=== PATIENT | male | born 1995 ===

== ENCOUNTER 2022-12-06 09:19 | Day surgery (SDC) | payer OTHER ==
[~2022-12-06 09:19] MED LIST: Dexamethasone 4 MG/ML 5 ML MDV ONE; EPINEPHrine 1 MG/ML 30 ML MDV IRR SCH; Lactated Ringers 1,000 ML IV SCH; Lidocaine 1% 5 ML VIAL ONE; Midazolam 1 MG/ML 2 ML SDV ONE; Ondansetron 4 MG/2 ML SDV ONE; Propofol 200 MG/20 ML SDV ONE; fentaNYL 250 MCG/5 ML SDV ONE
[2022-12-06] MEDS ORDERED: HYDROmorphone 0.5 MG/0.5 ML Syringe IVPUSH PRN (09:57)
[2022-12-06] MEDS ORDERED: fentaNYL 100 MCG/2 ML SDV IVPUSH PRN (09:57)
[2022-12-06] MEDS ORDERED: Ondansetron 4 MG/2 ML SDV IVPUSH PRN (09:57)
[2022-12-06] MEDS ORDERED: Bupivacaine 0.25% 10 ML SDV ONE (10:11)
[2022-12-06] MEDS ORDERED: ceFAZolin 2 GM Vial ONE (10:12)
[2022-12-06] MEDS ORDERED: Ketorolac 30 MG/ML SDV ONE (11:09)
[2022-12-06] MEDS ORDERED: Lactated Ringers 1,000 ML ONE (11:25)
[2022-12-06] MEDS ORDERED: Promethazine 6.25 MG in Sodium Chloride 0.9% 9 ML IV PRN (12:32)
== END 2022-12-06 14:05 | disposition home or self-care (01) ==
LOC: JD.SDS 09:19
PROVIDERS: ATTEND Orthopaedic Surgery
DX: S83.232A Complex tear of medial meniscus, current injury, left knee, initial encounter (principal); G89.29 Other chronic pain; R03.0 Elevated blood-pressure reading, without diagnosis of hypertension; J30.2 Other seasonal allergic rhinitis; F17.220 Nicotine dependence, chewing tobacco, uncomplicated; Z79.82 Long term (current) use of aspirin; Z79.899 Other long term (current) drug therapy
CPT/HCPCS: 29881; J0171; J0690; J1100; J1885; J2250; J2405; J2550; J2704; J3010; J3490; J7120; 01400